=== PATIENT | male | born 1995 | race Caucasian/White ===

== ENCOUNTER 2017-11-11 10:00 | Emergency (ER) | payer SELFPAY ==
[~2017-11-11] VITALS: Ht 182.9 cm; Wt 68.2 kg
[2017-11-11] MEDS ORDERED: AFRIN 20 ML20 M1 NS (10:47)
[2017-11-11 10:57] VITALS: BP 142/90; PULSE 64; TEMP 98.1
== END 2017-11-11 10:57 | disposition home or self-care (01) ==
LOC: COL.ER 10:00
DX: S09.92XA Unspecified injury of nose, initial encounter (principal); W22.8XXA Striking against or struck by other objects, initial encounter